=== PATIENT | female | born 1990 | race Caucasian/White ===

== ENCOUNTER 2018-09-15 12:58 | Emergency (ER) | payer SELFPAY ==
[2018-09-15 13:07] VITALS: BP 110/69
--- NOTE | 2018-09-15 13:19 | UC ---
General HPI - HPI Summary HPI Summary: pt was driving home from court yesterday when she noted a sudden tightness in the front of her chest into her neck. it was constant at the onset but now only occurs with deep breaths, swallow and leaning forward. no hx injury, fever, reflux or current / recent illness. no hx drug use including cocaine. denies leg/calf pain/swelling. no FMH premature CAD or heart disease. no lung disease. no GERD. not related to exertion, no SOB, no diaphoresis. wonders if it is stress related. - History of Current Complaint Chief Complaint: UCChestPain Stated Complaint: CHEST/NECK PAIN Time Seen by Provider: 09/15/18 13:08 Hx Obtained From: Patient Hx Last Menstrual Period: 09/08/18 Onset/Duration: Sudden Onset Pain Intensity: 6 Associated Signs & Symptoms: Positive: Chest Pain. Negative: Abdominal Pain, Back Pain, Diaphoresis, Fever, Nausea, SOB, Wheezing - Allergy/Home Medications Allergies/Adverse Reactions: Allergies Allergy/AdvReac Type Severity Reaction Status Date / Time No Known Allergies Allergy Verified 09/15/18 13:07 Home Medications: Home Medications Aspirin/Acetaminophen/Caffeine [Excedrin Extra Strength Caplet] 2 tab PO ONCE PRN 09/15/18 [History Confirmed 09/15/18] PMH/Surg Hx/FS Hx/Imm Hx Previously Healthy: Yes - Surgical History Surgical History: Yes Surgery Procedure, Year, and Place: Left Knee Arthroscopy - Family History Known Family History: Positive: None - Pt denies FMHX - Social History Alcohol Use: Rare Substance Use Type: None Smoking Status (MU): Heavy Every Day Tobacco Smoker Type: Cigarettes Amount Used/How Often: 1/2 - 1 PPD Length of Time of Smoking/Using Tobacco: 15 Years Have You Smoked in the Last Year: No When Did the Patient Quit Smoking/Using Tobacco: 09/17/14 Household Exposure Type: Cigarettes Review of Systems All Other Systems Reviewed And Are Negative: Yes Cardiovascular: Positive: Chest Pain. Negative: Palpitations Physical Exam Triage Information Reviewed: Yes Appearance: Well-Appearing Vital Signs: Initial Vital Signs Temp 97.1 F 09/15/18 13:02 Pulse 86 09/15/18 13:02 Resp 18 09/15/18 13:02 BP 110/69 09/15/18 13:02 Pulse Ox 98 09/15/18 13:02 Vital Signs Reviewed: Yes Eyes: Positive: Conjunctiva Clear ENT: Positive: Pharynx normal, TMs normal. Negative: Nasal congestion, Nasal drainage Neck: Positive: Supple, Nontender, No Lymphadenopathy, Other: - No thyromegaly Respiratory: Positive: Chest non-tender, Lungs clear, Normal breath sounds, No respiratory distress Cardiovascular: Positive: RRR, No Murmur, Pulses Normal - BUE's, Other: - Pt leaned forward to reproduce pain and no rubs or murmurs appreciated. Abdomen Description: Positive: Nontender, No Organomegaly, Soft. Negative: Pulsatile Mass Bowel Sounds: Positive: Present Musculoskeletal: Positive: ROM Intact, No Edema - BLE's and no cords or calf tenderness. Neurological: Positive: Alert Psychological: Positive: Age Appropriate Behavior Skin Exam: Normal Skin: Negative: Rashes Diagnostics - Radiology No standard instances Radiology Interpretation Completed By: Radiologist - cxr=No evidence for acute intrathoracic disease. - EKG Cardiac Rate: NL Cardiac Rhythm: Sinus: Normal Ectopy: None ST Segment: Normal Course/Dx - Differential Dx - Multi-Symptom Differential Diagnoses: Other - no tachycardia, hypoxemia and no calf pain/ edema to suggest PE plus not typical of PE. no risk for premature CAD and EKG has no lethal arryhtmia. not c/w dissection. No rub on exam and no EKG's changes of pericarditis. no thyromegaly or masses of neck. no acute abdomen. CXR =nad, no cm. Partial relief from GI cocktail, leaning forward and deep breaths no longer cause her discomfort. will tx PPI. Pt agrees to go to ER for changes or worsening. - Diagnoses Provider Diagnosis: Chest pain Discharge - Sign-Out/Discharge Documenting (check all that apply): Patient Departure All imaging exams completed and their final reports reviewed: Yes - Discharge Plan Condition: Stable Disposition: HOME Prescriptions: Omeprazole CAP (NF) [Prilosec CAP* 20 MG] 20 mg PO DAILY #14 Patient Education Materials: Chest Pain (ED), Gastroesophageal Reflux Disease ( DC) Referrals: BETTY Jones [Medical Doctor] - 3 Days Additional Instructions: GO DIRECTLY TO THE ER FOR ANY CHANGES OR WORSENING - Billing Disposition and Condition Condition: STABLE Disposition: Home
[2018-09-15] MEDS ORDERED: Lidocaine 2% VISCOUS* 15 ML UDC PO ONE (13:32)
[2018-09-15] MEDS ORDERED: Al Hydrox/Mg Hydrox/Simet LIQ* 30 ML UDC PO ONE (13:32)
== END 2018-09-15 14:15 | disposition home or self-care (01) ==
LOC: UCCORT 12:58
DX: R07.89 Other chest pain (principal); Z87.891 Personal history of nicotine dependence
CPT/HCPCS: 71046; 93005; 99212; A9270-GY; G0463

== ENCOUNTER 2019-01-03 12:01 | Emergency (ER) | payer SELFPAY ==
--- NOTE | 2019-01-03 12:35 | UC ---
Lower Extremity/Ankle HPI - HPI Summary HPI Summary: Rolled right ankle on Friday, she has been applying ice and elevating and using crutches but today she has had bruising and wanted it checked. - History of Current Complaint Stated Complaint: RT ANKLE INJ Time Seen by Provider: 01/03/19 12:08 Hx Obtained From: Patient Hx Last Menstrual Period: 09/08/18 ?: No Onset/Duration: Sudden Onset Severity Initially: Mild Severity Currently: Mild Aggravating Factor(s): Ambulation Alleviating Factor(s): Rest, Elevation, Ice Able to Bear Weight: Yes - Allergies/Home Medications Allergies/Adverse Reactions: Allergies Allergy/AdvReac Type Severity Reaction Status Date / Time No Known Allergies Allergy Verified 01/03/19 12:38 Home Medications: Home Medications Acetaminophen [Tylenol Extra Strength] 1,000 mg PO ONCE PRN 01/03/19 [History Confirmed 01/03/19] PMH/Surg Hx/FS Hx/Imm Hx Previously Healthy: Yes - Surgical History Surgical History: Yes Surgery Procedure, Year, and Place: Left Knee Arthroscopy - Family History Known Family History: Positive: None - Pt denies FMHX - Social History Alcohol Use: Rare Substance Use Type: None Smoking Status (MU): Heavy Every Day Tobacco Smoker Type: Cigarettes Amount Used/How Often: 1/2 - 1 PPD Length of Time of Smoking/Using Tobacco: 15 Years Have You Smoked in the Last Year: No When Did the Patient Quit Smoking/Using Tobacco: 09/17/14 Household Exposure Type: Cigarettes Review of Systems All Other Systems Reviewed And Are Negative: Yes Skin: Positive: Bruising - bruising around ankle Motor: Positive: Negative Neurovascular: Positive: Negative Musculoskeletal: Positive: Negative Neurological: Positive: Negative Is Patient Immunocompromised?: No Physical Exam Triage Information Reviewed: Yes Appearance: Well-Appearing, No Pain Distress, Well-Nourished Vital Signs Reviewed: Yes Musculoskeletal: Positive: Strength Intact, ROM Intact, Other: - Good periph pulses, neurosensation, cap refill, good ankle stability, Tavo's intact. Full ROM. Neurological: Positive: Alert, Muscle Tone Normal Psychological Exam: Normal Skin: Positive: Other - Bruising around ankle but no deformity, minimal swelling lateral ankle Lower Extremity Course/Dx - Course Course Of Treatment: right ankle: FINDINGS: There is soft tissue swelling overlying the fibular malleolus. The bones are normal alignment. Joint spaces appear maintained. No fracture is seen. IMPRESSION: RIGHT ANKLE SOFT TISSUE SWELLING WITHOUT UNDERLYING FRACTURE OR DISLOCATION. Pt to continue Ice and elevation, ambulate as pain permits. - Differential Dx/Diagnosis Provider Diagnosis: Right ankle sprain Discharge - Sign-Out/Discharge Documenting (check all that apply): Patient Departure All imaging exams completed and their final reports reviewed: Yes - Discharge Plan Condition: Fair Disposition: HOME Patient Education Materials: Ankle Sprain (DC) Referrals: No Primary Care Phys,NOPCP [Primary Care Provider] - Oumou Yañez MD [Medical Doctor] - Additional Instructions: May walk as pain permits, elevate as much as possible. Tim bandage for swelling and comfort. Follow up with the orthopedist in 4-5 days if no improvement - Billing Disposition and Condition Condition: FAIR Disposition: Home
[2019-01-03 12:41] VITALS: BP 107/57
== END 2019-01-03 13:26 | disposition home or self-care (01) ==
LOC: UCCORT 12:01
DX: S93.401A Sprain of unspecified ligament of right ankle, initial encounter (principal); X50.0XXA Overexertion from strenuous movement or load, initial encounter; Y92.9 Unspecified place or not applicable; F17.210 Nicotine dependence, cigarettes, uncomplicated
CPT/HCPCS: 99211; G0463